=== PATIENT | male | born 1975 | race Caucasian/White ===

== ENCOUNTER 2020-03-25 08:02 | Emergency (ER) | payer BC, SELFPAY ==
[2020-03-25 09:06] LABS: Basophils % 0.6 % (0-1.3); Hematocrit 46.4 % (39.6-49.0); Lymphocytes % 28.1 % (15.3-44.8); RBC Red Blood Cell Count 5.59 M/uL (4.33-5.43)
[2020-03-25] MEDS ORDERED: CLINDAMYCIN 900MG/D5W 900 MG/50 ML IVPB IV ONE (09:11)
[2020-03-25] MEDS ORDERED: dexAMETHasone 4 MG/ML VIAL ONE (09:13)
--- NOTE | 2020-03-25 09:14 | RAD REPORT ---
EXAM DESCRIPTION: CT - Soft Tissue Neck Wo Contr CLINICAL HISTORY: eval for peritonsillar abscess Pain and swelling COMPARISON: No comparisons TECHNIQUE All CT scans are performed using dose optimization technique as appropriate and may includ e automated exposure control or mA/KV adjustment according to patient size. FINDINGS: Lack of IV contrast material significantly limits the examination. Enlargement of the left palatine tonsil is noted with [id number] moderate mass effect on the phary nx. Poorly defined fluid collection measuring approximately 27 x 23 mm is seen within the left palati ne tonsil most compatible with peritonsillar abscess. Assessment is limited by the lack contrast mate rial. Multiple enlarged lymph nodes are seen in the neck bilaterally. No prevertebral fluid. Left piriform sinus is under-aerated. IMPRESSION: Moderate enlargement of the left palatine tonsil is seen with 2.7 cm peritonsillar absce ss suspected.
[2020-03-25 09:18] LABS: Potassium 3.9 mmol/L (3.5-5.1)
[2020-03-25] MEDS ORDERED: LIDOCAINE 1% 20 ML MDV ONE (09:53)
--- NOTE | 2020-03-25 10:09 | EDPHYS ---
Physician Documentation [facility] Name: Cody Damon Age: 44 yrs Sex: Male : 1975 Arrival Date: 03/25/2020 Time: 08:05 Bed 19 Private MD: ED Physician Delio Orona HPI: 03/25 10:05 This 44 yrs old Male presents to ER via Ambulatory with complaints of rn Breathing Difficulty, Difficulty Swallowing. 10:05 The patient presents with sore throat. The patient describes throat pain as pressure. rn Onset: The symptoms/episode began/occurred 5 day(s) ago. Severity of symptoms: At their worst the symptoms were moderate, in the emergency department the symptoms are unchanged. Modifying factors: The symptoms are alleviated by nothing, the symptoms are aggravated by swallowing. The patient has not experienced similar symptoms in the past. Reports a few days of sore throat took unknown abx at home, didn't help, now has swelling and pain with swallowing, voice sounds different. . Historical: - Allergies: 08:19 No Known Allergies; iw - Home Meds: 08:19 None [Active]; iw - PMHx: 08:19 None; iw - PSHx: 08:19 hand; iw - Immunization history:: Adult Immunizations up to date. - Social history:: Smoking status: . - Family history:: not pertinent. - Hospitalizations: : No recent hospitalization is reported. ROS: 10:05 Constitutional: Negative for fever, chills, and weight loss, ENT: + sore throat and rn throat swelling Neck: Negative for injury Cardiovascular: Negative for chest pain, palpitations, and edema, Respiratory: Negative for shortness of breath, cough, wheezing, and pleuritic chest pain, Abdomen/GI: Negative for abdominal pain, nausea, vomiting, diarrhea, and constipation, MS/Extremity: Negative for injury and deformity, Neuro: Negative for headache, weakness, numbness, tingling, and seizure. Exam: 10:05 Constitutional: This is a well developed, well nourished patient who is awake, alert, rn and in no acute distress. ENT: + pharyngeal erythema with tonsillar hypertrophy and left sided evidence of peritonsillar abscess, uvula midline, no stridor, handling secretions. Neck: + bilateral non-tender cervical LAD Vital Signs: 08:16 BP 160 / 92; Pulse 70; Resp 16; Temp 98.4; Pulse Ox 98% on R/A; Weight 136.08 kg; iw Height 6 ft. 2 in. (187.96 cm); Pain 4/10; 09:30 BP 146 / 91; Pulse 82; Resp 16; Pulse Ox 98% on R/A; iw 08:16 Body Mass Index 38.52 (136.08 kg, 187.96 cm) iw Procedures: 10:05 I \\T\\ D: Incision and drainage was performed for an abscess of the left peritonsillar rn area. Anesthetized with 2 ml's 1% Lidocaine. Incised with 18g needle. Drained moderate amount purulent fluid. serosanguinous fluid. the patient tolerated the procedure well. MDM: 08:21 Patient medically screened. rn 10:05 Differential diagnosis: group A strep tonsillitis, peritonsillar abscess tonsillitis. rn Data reviewed: vital signs, nurses notes, lab test result(s), radiologic studies, CT scan, and as a result, I will discharge patient. Counseling: I had a detailed discussion with the patient and/or guardian regarding: the historical points, exam findings, and any diagnostic results supporting the discharge/admit diagnosis, lab results, radiology results, the need for outpatient follow up, to return to the emergency department if symptoms worsen or persist or if there are any questions or concerns that arise at home. Response to treatment: the patient's symptoms have markedly improved after treatment, reports pressure markedly decreased and feels like "can breath" again., and as a result, I will discharge patient. Special discussion: I discussed with the patient/guardian in detail that at this point there is no indication for admission to the hospital. It is understood, however, that if the symptoms persist or worsen the patient needs to return immediately for re-evaluation. 03/25 08: Order name: CBC with Diff; Complete Time: rn 03/25 08:29 Order name: Basic Metabolic Panel; Complete Time: rn 03/25 08:29 Order name: Strep; Complete Time: rn 03/25 09:12 Order name: CREATININE WHOLE BLOOD; Complete Time: EDWV 03/25 09:28 Order name: Throat Culture EDWV 03/25 08:29 Order name: IV Start; Complete Time: rn 03/25 08:57 Order name: Soft Tissue Neck Wo Contr; Complete Time: 09:28 EDMS Administered Medications: 09:10 Drug: Decadron - Dexamethasone 10 mg Route: IVP; Site: right antecubital; iw 09:30 Follow up: Response: No adverse reaction iw 09: Drug: Clindamycin 900 mg Route: IVPB; Infused Over: 30 mins; Site: right antecubital; iw 10:08 Drug: Lidocaine (1 %) 1 vials {Note: by Dr. Orona.} Volume: 5 ml; Route: Infiltration; ca1 10:08 Drug: Zofran (Ondansetron) 4 mg Route: IVP; Site: right antecubital; ca1 10:20 Follow up: Response: No adverse reaction iw Disposition: 03/25/20 10:08 Discharged to Home. Impression: Peritonsillar abscess. - Condition is Stable. - Discharge Instructions: Peritonsillar Abscess. - Prescriptions for Clindamycin HCl 300 mg Oral Capsule - take 1 capsule by ORAL route every 6 hours for 10 days; 40 capsule. Augmentin 875- 125 mg Oral Tablet - take 1 tablet by ORAL route every 12 hours for 10 days; 20 tablet. Tylenol- Codeine #3 300-30 mg Oral Tablet - take 2 tablets by ORAL route every 6 hours As needed; 20 tablet. Medrol (Edgar) 4 mg Oral Tablets, Dose Pack - take 1 tablet by ORAL route as directed - follow package instructions; 1 packet. - Medication Reconciliation Form, Thank You Letter, Antibiotic Education, Prescription Opioid Use form. - Follow up: Elizabeth Tijerina MD; When: As needed; Reason: Recheck today's complaints, Re-evaluation by your physician. - Problem is new. - Symptoms have improved. Signatures: Dispatcher [employer] EDWV Daniela Llamas RN RN iw Delio Orona MD MD rn Acob, Daria RN RN ca1 Corrections: (The following items were deleted from the chart) 08:57 08:30 Soft Tissue Neck W/Contr+CT.RAD.BRZ ordered. [facility] EDMS 10:17 10:08 03/25/2020 10:08 Discharged to Home. Impression: Peritonsillar abscess. Condition iw is Stable. Forms are Medication Reconciliation Form, Thank You Letter, Antibiotic Education, Prescription Opioid Use. Follow up: Elizabeth Tijerina; When: As needed; Reason: Recheck today's complaints, Re-evaluation by your physician. Problem is new. Symptoms have improved. rn
--- NOTE | 2020-03-25 10:09 | ER ---
Nurse's Notes [facility] Name: Cody Damon Age: 44 yrs Sex: Male : 1975 Arrival Date: 03/25/2020 Time: 08:05 Bed 19 Private MD: Diagnosis: Peritonsillar abscess Presentation: 03/25 08:16 Chief complaint: Patient states: feels like throat is closing up, had a sore throat iw last week, had pus pockets, was taking left over abx, last night had itching in throat and couldn't breathe, feels like he can't get a breath because his throat is swollen , no fever. Ebola Screen: Patient negative for fever greater than or equal to 101.5 degrees Fahrenheit, and additional compatible Ebola Virus Disease symptoms Patient denies exposure to infectious person. Patient denies travel to an Ebola-affected area in the 21 days before illness onset. No symptoms or risks identified at this time. Initial Sepsis Screen: Does the patient meet any 2 criteria? No. Patient's initial sepsis screen is negative. Does the patient have a suspected source of infection? No. Patient's initial sepsis screen is negative. Risk Assessment: Do you want to hurt yourself or someone else? Patient reports no desire to harm self or others. Onset of symptoms was March 19, 2020. 08:16 Method Of Arrival: Ambulatory iw 08:16 Acuity: SELVIN 3 iw 08:45 Coronavirus screen: At this time, the client does not indicate any symptoms associated iw with coronavirus-19. Triage Assessment: 08:45 Respiratory: Reports the patient has moderate shortness of breath. iw 10:20 Respiratory: Onset: The symptoms/episode began/occurred. iw Historical: - Allergies: 08:19 No Known Allergies; iw - Home Meds: 08:19 None [Active]; iw - PMHx: 08:19 None; iw - PSHx: 08:19 hand; iw - Immunization history:: Adult Immunizations up to date. - Social history:: Smoking status: . - Family history:: not pertinent. - Hospitalizations: : No recent hospitalization is reported. Screenin:00 Abuse screen: Denies threats or abuse. Denies injuries from another. Nutritional ca1 screening: No deficits noted. Tuberculosis screening: No symptoms or risk factors identified. Fall Risk IV access (20 points). Assessment: 08:39 General: Appears in no apparent distress. Behavior is calm, cooperative. Pain: iw Complains of pain in throat. Neuro: Level of Consciousness is awake, alert, obeys commands, Oriented to person, place, time, situation, Moves all extremities. Full function. Cardiovascular: Rhythm is. Respiratory: Airway obstructed, Respiratory effort is even, unlabored, Breath sounds are clear bilaterally. Derm: Skin is intact, is healthy with good turgor. 09:26 Reassessment: Patient appears in no apparent distress at this time. Patient and/or iw family updated on plan of care and expected duration. Pain level reassessed. Patient is alert, oriented x 3, equal unlabored respirations, skin warm/dry/pink. EENT: Throat is reddened has enlarged tonsils on left with gag reflex present. 09:47 Reassessment: pt has been consented for aspiration of left peritonsillar abscess. iw 10:16 Reassessment: Patient appears in no apparent distress at this time. Patient is alert, ca1 oriented x 3, equal unlabored respirations, skin warm/dry/pink. Vital Signs: 08:16 BP 160 / 92; Pulse 70; Resp 16; Temp 98.4; Pulse Ox 98% on R/A; Weight 136.08 kg; iw Height 6 ft. 2 in. (187.96 cm); Pain 4/10; 09:30 BP 146 / 91; Pulse 82; Resp 16; Pulse Ox 98% on R/A; iw 08:16 Body Mass Index 38.52 (136.08 kg, 187.96 cm) ED Course: 08:05 Patient arrived in ED. ag5 08:19 Triage completed. iw 08:19 Arm band placed on Patient placed. iw 08:20 Daniela Llamas, RN is Primary Nurse. iw 08:21 Delio Orona MD is Attending Physician. rn 08:39 Patient has correct armband on for positive identification. iw 08:39 Initial lab(s) drawn, by me, sent to lab. Inserted saline lock: 20 gauge in right iw antecubital area, using aseptic technique. Blood collected. 08:59 Soft Tissue Neck Wo Contr In Process Unspecified. EDMS 10:00 Assist provider with I \T\ D: of an abscess on tonsils Set up I\T\D tray. Performed by ca 1 Delio Orona MD Patient tolerated well. 10:08 Elizabeth Tijerina MD is Referral Physician. rn 10:16 IV discontinued, intact, bleeding controlled, No redness/swelling at site. Pressure iw dressing applied. Administered Medications: 09:10 Drug: Decadron - Dexamethasone 10 mg Route: IVP; Site: right antecubital; iw 09:30 Follow up: Response: No adverse reaction iw 09:13 Drug: Clindamycin 900 mg Route: IVPB; Infused Over: 30 mins; Site: right antecubital; iw 10:08 Drug: Lidocaine (1 %) 1 vials {Note: by Dr. Orona.} Volume: 5 ml; Route: Infiltration; ca1 10:08 Drug: Zofran (Ondansetron) 4 mg Route: IVP; Site: right antecubital; ca1 10:20 Follow up: Response: No adverse reaction iw Outcome: 10:08 Discharge ordered by MD. rn 10:16 Discharged to home ambulatory. iw 10:16 Condition: good 10:16 Discharge instructions given to patient, Instructed on discharge instructions, follow up and referral plans. medication usage, Demonstrated understanding of instructions, follow-up care, medications, Prescriptions given X 4. 10:17 Patient left the ED. iw Signatures: Dispatcher [employer] EDMS Daniela Llamas RN DENNISE iw Delio Orona MD MD rn Acob, Cheryl RN RN ca1 Humberto, Angelina ag5 Corrections: (The following items were deleted from the chart) 10:34 10:16 Discharge instructions given to patient, Instructed on discharge instructions, iw follow up and referral plans. medication usage, Demonstrated understanding of instructions, follow-up care, medications, iw
[2020-03-25] MEDS ORDERED: ONDANSETRON 4 MG/2 ML VIAL ONE (10:18)
[2020-03-25 10:29] VITALS: TEMP 98.4; O2SAT 98
[2020-03-25 10:31] VITALS: BP 146/91
== END 2020-03-25 10:17 | disposition home or self-care (01) ==
LOC: ER 08:02
PROC: 0C9PXZZ Drainage of Tonsils, External Approach (ICD-10-PCS; principal; 2020-03-25)
DX: J36 Peritonsillar abscess (principal)
CPT/HCPCS: 36415; 70490; 80048; 82565; 85025; 87070; 87081; 96374; 96375; 99284; J1100; J2405